=== PATIENT | female | born 1990 | race Caucasian/White ===

== ENCOUNTER 2017-06-29 03:49 | Emergency (ER) | payer OTHER ==
[2017-06-29 03:54] VITALS: BP 129/92
--- NOTE | 2017-06-29 03:54 | EDPHY ---
H & P Stated Complaint: UTI symptoms x 5hours Time Seen by Provider: 06/29/17 03:54 HPI/ROS: HPI CHIEF COMPLAINT: Dysuria urinary frequency HISTORY OF PRESENT ILLNESS: Patient very pleasant 27-year-old female she is otherwise healthy, has had UTIs in the past, presents emergency room with dysuria and urinary frequency. She reports that she has had burning when she urinates in going to the bathroom very often for the past 5-6 hours. She denies any back pain, denies abdominal pain, denies fever. She thinks she may have a urinary tract infection. Past Medical History: Previous history UTI. Past Surgical History: No significant surgical history Social History: Denies daily use of drugs alcohol tobacco. Family History: Noncontributory ROS REVIEW OF SYSTEMS: A comprehensive 10 point review of systems is otherwise negative aside from elements mentioned in the history of present illness. Exam Constitutional appears well nontoxic, triage nursing summary reviewed, vital signs reviewed, awake/alert. Eyes normal conjunctivae and sclera, EOMI, PERRLA. HENT normal inspection, atraumatic, moist mucus membranes, no epistaxis, neck supple/ no meningismus, no raccoon eyes. Respiratory clear to auscultation bilaterally, normal breath sounds, no respiratory distress, no wheezing. Cardiovascular rate normal, regular rhythm, no murmur, no edema, distal pulses normal. Gastrointestinal soft, non-tender, no rebound, no guarding, normal bowel sounds, no distension, no pulsatile mass. Genitourinary no CVA tenderness. Musculoskeletal no midline vertebral tenderness, full range of motion, no calf swelling, no tenderness of extremities, no meningismus, good pulses, neurovascularly intact. Skin pink, warm, & dry, no rash, skin atraumatic. Neurologic awake, alert and oriented x 3, AAOx3, moves all 4 extremities equally, motor intact, sensory intact, CN II-XII intact, normal cerebellar, normal vision, normal speech. Psychiatric normal mood/affect. Heme/Lymph/Immune no lymphadenopathy. Differential Diagnosis: Includes but is not limited to in a particular order, UTI, cystitis, pyelonephritis Medical Decision Making: Plan for this patient check UA. Re-evaluation: Urinalysis reviewed. Nitrite positive UTI. Keflex 1st dose given in emergency room as well as Pyridium. Keflex take-home pack provided. Prescription for Keflex and Pyridium. Patient understands drink lots of fluids. Return precautions discussed with her return if worsening abdominal pain fever vomiting worsening urinary symptoms. She understands. Source: Patient - Personal History LMP (Females 10-55): 1-7 Days Ago Current Tetanus/Diphtheria Vaccine: Yes - Medical/Surgical History Hx Asthma: No Hx Chronic Respiratory Disease: No Hx Diabetes: No Hx Cardiac Disease: No Hx Renal Disease: No Hx Cirrhosis: No Hx Alcoholism: No Hx HIV/AIDS: No Hx Splenectomy or Spleen Trauma: No Other PMH: HPV, borderline personality disorder - Social History Smoking Status: Never smoked Constitutional: Initial Vital Signs Temperature (C) 36.9 C 06/29/17 03:51 Heart Rate 95 06/29/17 03:51 Respiratory Rate 18 06/29/17 03:51 Blood Pressure 129/92 H 06/29/17 03:51 O2 Sat (%) 97 06/29/17 03:51 O2 Delivery Mode Room Air Allergies/Adverse Reactions: No Known Allergies Allergy (Unverified 01/22/14 09:02) Home Medications: Medication Instructions Recorded Cephalexin [Keflex] 500 mg PO Q6H #28 cap 06/29/17 Phenazopyridine HCl [Pyridium] 200 mg PO TID #15 tab 06/29/17 Medical Decision Making - Data Points Laboratory Results: 06/29/17 03:55 Urine Color YELLOW Urine Appearance MODERATELY TURBID Urine pH 6.0 (5.0-7.5) Ur Specific [place] 1.026 (1.002-1.030) Urine Protein 2+ H (NEGATIVE) Urine Ketones 1+ H (NEGATIVE) Urine Blood 3+ H (NEGATIVE) Urine Nitrate POSITIVE H (NEGATIVE) Urine Bilirubin NEGATIVE (NEGATIVE) Urine Urobilinogen NEGATIVE EU EU (0.2-1.0) Ur Leukocyte Esterase 2+ H (NEGATIVE) Urine RBC Pending Urine WBC Pending Ur Epithelial Cells Pending Urine Glucose NEGATIVE (NEGATIVE) Departure - Departure Disposition: Home, Routine, Self-Care Clinical Impression: Urinary tract infection Qualifiers: Urinary tract infection type: acute cystitis Hematuria presence: with hematuria Qualified Code(s): N30.01 - Acute cystitis with hematuria Condition: Good Instructions: Urinary Tract Infection in Women (ED) Additional Instructions: 1. Drink lots of fluids stay well-hydrated. 2. Antibiotics as prescribed. 3. Pyridium to help with pain 4. Return emergency room if there is worsening abdominal pain fever vomiting. Prescriptions: Cephalexin [Keflex] 500 mg PO Q6H #28 cap Phenazopyridine HCl [Pyridium] 200 mg PO TID #15 tab
[2017-06-29] MEDS ORDERED: PHENAZOPYRIDINE HCL 200 MG TAB PO ONE (04:23)
[2017-06-29] MEDS ORDERED: CEPHALEXIN 500 MG CAP PO ONE (04:23)
[2017-06-29] MEDS ORDERED: CEPHALEXIN 500MG PREPACK#4 BTL TAKEHOME ONE (04:23)
== END 2017-06-29 04:54 | disposition home or self-care (01) ==
DX: N30.01 Acute cystitis with hematuria (principal); B96.89 Other specified bacterial agents as the cause of diseases classified elsewhere